=== PATIENT | male | born 2000 | race Caucasian/White ===

== ENCOUNTER 2018-04-27 04:10 | Emergency (ER) | payer OTHER ==
[~2018-04-27] VITALS: Ht 177.8 cm; Wt 73.5 kg
[2018-04-27 04:22] VITALS: BP 129/84
[2018-04-27] MEDS ORDERED: IBUPROFEN 800 MG TAB PO ONE (06:30)
== END 2018-04-27 07:41 | disposition home or self-care (01) ==
LOC: ER 04:11
DX: M48.061 Spinal stenosis, lumbar region without neurogenic claudication (principal); X50.1XXA Overexertion from prolonged static or awkward postures, initial encounter; Y93.89 Activity, other specified; Y92.89 Other specified places as the place of occurrence of the external cause; Y99.8 Other external cause status
CPT/HCPCS: 72128; 72131

== ENCOUNTER 2019-01-25 08:56 | Emergency (ER) | payer MEDICAID, OTHER ==
[~2019-01-25] VITALS: Ht 172.7 cm; Wt 81.6 kg
[2019-01-25 09:42] LABS: Basophils # (auto) 0 uL; Basophils % (auto) 0.2 % (0.0-2.0); Eosinophils # (auto) 0 uL; Eosinophils % (auto) 0.2 % (0.0-7.0); Hematocrit 50.2 % (41.0-53.0); Hemoglobin 17.1 g/dL (13.5-17.5); Lymphocytes # (auto) 1.2 uL; Lymphocytes % (auto) 11.4 % (10.0-50.0); Mean Corpuscular Hemoglobin 31.2 pg (28.0-32.0); Mean Corpuscular Hgb Conc. 34.1 g/dL (32.0-36.0); Mean Corpuscular Volume 91.5 fL (80.0-100.0); Monocytes # (auto) 0.8 uL; Monocytes % (auto) 7.3 % (0.0-12.0); Neutrophils # (auto) 8.8 uL; Neutrophils % (auto) 80.9 % (37.0-80.0); Platelet Count (auto) 221 10^3/uL (140-450); Red Blood Cells 5.48 10^6/uL (4.5-5.90); Red Cell Distribution Width 12.5 % (11.8-14.3); White Blood Cell 10.9 10^3/uL (4.4-10.8)
[2019-01-25 09:53] LABS: Albumin 4.2 g/dL (3.4-5.0); Calcium 9.3 mg/dL (8.5-10.1); Potassium 3.5 mmol/L (3.5-5.1)
[2019-01-25 09:56] LABS: BUN/Creatinine Ratio 8.5; Bilirubin, Total 0.7 mg/dL (0.2-1.0); Total Protein 8.5 g/dL (6.4-8.2)
[2019-01-25] MEDS ORDERED: SODIUM CHLORIDE 0.9% 1,000 ML IV ONE ×2 (10:00→10:07)
[2019-01-25] MEDS ORDERED: KETOROLAC TROMETH 30 MG/ML 1ML VIAL IV ONE (11:45)
[2019-01-25] MEDS ORDERED: cefTRIAXone 1GM/50ML D5W 50 ML IV ONE (12:15)
[2019-01-25 14:11] VITALS: BP 116/65
== END 2019-01-25 14:13 | disposition home or self-care (01) ==
LOC: ER 09:02
DX: R78.81 Bacteremia (principal); J32.9 Chronic sinusitis, unspecified; R11.2 Nausea with vomiting, unspecified; R10.84 Generalized abdominal pain
CPT/HCPCS: 36415; 70486; 71046; 80053; 83605; 83735; 85025; 87040; 93005; 96361; 96365; 96366; 96375; 99284; J0696; J1885; J7030

== ENCOUNTER 2022-08-03 15:57 | Inpatient (IN) | payer MEDICAID ==
[~2022-08-03] VITALS: Ht 180.3 cm; Wt 85.5 kg
[2022-08-03] MEDS ORDERED: SODIUM CHLORIDE 0.9% 1,000 ML IV ONE (16:30)
[2022-08-03] MEDS ORDERED: ONDANSETRON HCL 4 MG/2 ML VIAL IV ONE (16:30)
[2022-08-03] MEDS ORDERED: HYDROmorphone HCL 2 MG/ML VL/or syr IV ONE ×3 (16:30→20:15)
[2022-08-03] MEDS ORDERED: TEMAZEPAM 15 MG CAP PO PRN (21:00)
[2022-08-03] MEDS ORDERED: HYDROcodone-ACET 5/325MG TAB PO PRN (21:00)
[2022-08-03] MEDS: SODIUM CHLORIDE 0.9% 1,000 ML IV SCH (21:39)
[2022-08-03] MEDS: MORPHINE SULFATE INJ 2 MG/ml SYRG IV PRN (21:55)
[2022-08-03 22:00] LABS: Basophils # (auto) 0 10 ^3/uL (0-0.2); Basophils % (auto) 0.2 % (0.0-2.0); Eosinophils # (auto) 0 10 ^3/uL (0-0.8); Eosinophils % (auto) 0.3 % (0.0-7.0); Hematocrit 39.9 % (41.0-53.0); Hemoglobin 13.2 g/dL (13.5-17.5); Lymphocytes # (auto) 2.4 10 ^3/uL (0.4-5.4); Lymphocytes % (auto) 13.7 % (10.0-50.0); Mean Corpuscular Hemoglobin 31.1 pg (28.0-32.0); Mean Corpuscular Hgb Conc. 33.1 g/dL (32.0-36.0); Mean Corpuscular Volume 93.8 fL (80.0-100.0); Monocytes # (auto) 1.5 10 ^3/uL (0-1.3); Monocytes % (auto) 8.4 % (0.0-12.0); Neutrophils # (auto) 13.6 10 ^3/uL (1.6-8.6); Neutrophils % (auto) 77.4 % (37.0-80.0); Red Blood Cells 4.25 10^6/uL (4.5-5.90); Red Cell Distribution Width 12.7 % (11.8-14.3); White Blood Cell 17.6 10^3/uL (4.4-10.8)
[2022-08-03 22:14] LABS: INR 1.04 (0.9-1.15); Partial Thromboplastin Time 24.5 sec (24.6-33.4)
[2022-08-03 23:18] LABS: Potassium 3.8 mmol/L (3.5-5.1)
[2022-08-03 23:19] LABS: Albumin 3.3 g/dL (3.4-5.0); BUN/Creatinine Ratio 8.8; Bilirubin, Total 0.5 mg/dL (0.2-1.0); Calcium 8.3 mg/dL (8.5-10.1); Total Protein 6.2 g/dL (6.4-8.2)
[2022-08-04] MEDS: MORPHINE SULFATE INJ 2 MG/ml SYRG IV PRN ×2 (01:59→11:10)
[2022-08-04] MEDS ORDERED: KETOROLAC TROMETH 30 MG/ML 1ML VIAL IV ONE (03:15)
[2022-08-04] MEDS: SODIUM CHLORIDE 0.9% 1,000 ML IV SCH ×2 (11:06→21:35)
[2022-08-04] MEDS: ONDANSETRON HCL 4 MG/2 ML VIAL IV PRN (11:07)
[2022-08-04] MEDS ORDERED: BUPIVACAINE W/ EPINEPH 0.5% INJ 50ML MDV IJ ONE (11:15)
[2022-08-04] MEDS ORDERED: ceFAZolin 1GM/50ML 100 ML IV ONE (12:02)
[2022-08-04] MEDS ORDERED: fentaNYL CITRATE 100 MCG/2 ML VL ONE (12:16)
[2022-08-04] MEDS ORDERED: MEPERIDINE HCL (50 MG/ML) 1 ML VIAL ONE (12:16)
[2022-08-04] MEDS ORDERED: MIDAZOLAM HCL 2MG/2ML 2ml VIAL (1mg/ml) ONE (12:16)
[2022-08-04] MEDS ORDERED: MIDAZOLAM HCL 2MG/2ML 2ml VIAL (1mg/ml) IV PRN (12:45)
[2022-08-04] MEDS ORDERED: ONDANSETRON HCL 4 MG/2 ML VIAL IV PRN (12:45)
[2022-08-04] MEDS ORDERED: LABETALOL HCL 5 MG/ML 4ML SYRINGE IV PRN (12:45)
[2022-08-04] MEDS ORDERED: HYDROmorphone HCL 2 MG/ML VL/or syr IV PRN (12:45)
[2022-08-04] MEDS ORDERED: ePHEDrine SULFATE 50 MG/ML AMP IV PRN (12:45)
[2022-08-04] MEDS ORDERED: MORPHINE SULFATE 4 MG/ML SYR/VIAL IV PRN (12:45)
[2022-08-04] MEDS ORDERED: DexAMETHasone SOD PHOS 10MG/1ML VIAL INJ ONE (12:59)
[2022-08-04] MEDS ORDERED: PROPOFOL 10 MG/ML 20 ML IV ONE (12:59)
[2022-08-04] MEDS ORDERED: ONDANSETRON HCL 4 MG/2 ML VIAL ONE (12:59)
[2022-08-04 17:24] VITALS: BP 138/72
[2022-08-04] MEDS: HYDROmorphone HCL 2 MG/ML VL/or syr IV PRN (18:10)
[2022-08-04 18:16] VITALS: BP 126/69
[2022-08-04] MEDS: ceFAZolin 2 GM in D5W 5% 100 ML IV SCH (21:35)
[2022-08-04 21:49] VITALS: BP 115/61
[2022-08-05] MEDS: HYDROcodone-ACET 10/325MG TAB PO PRN ×3 (01:18→18:56)
[2022-08-05] MEDS: HYDROmorphone HCL 2 MG/ML VL/or syr IV PRN ×5 (03:13→20:20)
[2022-08-05] MEDS: ceFAZolin 2 GM in D5W 5% 100 ML IV SCH ×2 (04:47→12:34)
[2022-08-05 05:10] VITALS: BP 118/52
[2022-08-05 08:30] VITALS: BP 110/70
[2022-08-05] MEDS: SODIUM CHLORIDE 0.9% 1,000 ML IV SCH (12:35)
[2022-08-05 14:13] VITALS: BP 124/64
[2022-08-05 16:00] VITALS: BP 138/76
[2022-08-05] MEDS: ENOXAPARIN SOD 40 MG/0.4 ML SYRINGE SC SCH (17:20)
[2022-08-05 21:40] VITALS: BP 124/41
[2022-08-06] MEDS: HYDROmorphone HCL 2 MG/ML VL/or syr IV PRN ×7 (00:20→21:29)
[2022-08-06] MEDS: SODIUM CHLORIDE 0.9% 1,000 ML IV SCH (02:20)
[2022-08-06] MEDS: HYDROcodone-ACET 10/325MG TAB PO PRN ×4 (02:46→22:59)
[2022-08-06 04:48] VITALS: BP 130/78
[2022-08-06] MEDS: ACETAMINOPHEN 325 MG TAB PO PRN (05:54)
[2022-08-06] MEDS: ENOXAPARIN SOD 40 MG/0.4 ML SYRINGE SC SCH (08:25)
[2022-08-06 09:00] VITALS: BP 129/89
[2022-08-06 13:25] VITALS: BP 134/74
[2022-08-06 16:55] VITALS: BP 153/83
[2022-08-06 22:00] VITALS: BP 142/89
[2022-08-06] MEDS: ONDANSETRON HCL 4 MG/2 ML VIAL IV PRN (23:51)
[2022-08-07 00:30] VITALS: BP 139/78
[2022-08-07] MEDS: ACETAMINOPHEN 325 MG TAB PO PRN ×3 (00:45→15:58)
[2022-08-07] MEDS: HYDROmorphone HCL 2 MG/ML VL/or syr IV PRN ×6 (00:47→21:59)
[2022-08-07 04:53] VITALS: BP 116/52
[2022-08-07 05:04] LABS: Basophils # (auto) 0 10 ^3/uL (0-0.2); Basophils % (auto) 0.3 % (0.0-2.0); Eosinophils # (auto) 0 10 ^3/uL (0-0.8); Eosinophils % (auto) 0.3 % (0.0-7.0); Hematocrit 37.9 % (41.0-53.0); Hemoglobin 12.9 g/dL (13.5-17.5); Lymphocytes # (auto) 1.3 10 ^3/uL (0.4-5.4); Lymphocytes % (auto) 9.2 % (10.0-50.0); Mean Corpuscular Hemoglobin 31.4 pg (28.0-32.0); Mean Corpuscular Hgb Conc. 34.1 g/dL (32.0-36.0); Monocytes # (auto) 1.3 10 ^3/uL (0-1.3); Monocytes % (auto) 9.6 % (0.0-12.0); Neutrophils # (auto) 11.3 10 ^3/uL (1.6-8.6); Neutrophils % (auto) 80.6 % (37.0-80.0); Red Blood Cells 4.12 10^6/uL (4.5-5.90); Red Cell Distribution Width 12.3 % (11.8-14.3); White Blood Cell 14.1 10^3/uL (4.4-10.8)
[2022-08-07 05:22] LABS: BUN/Creatinine Ratio 9.2; Calcium 8.3 mg/dL (8.5-10.1); Magnesium 1.7 mg/dL (1.6-2.6); Potassium 3.7 mmol/L (3.5-5.1)
[2022-08-07] MEDS: ONDANSETRON HCL 4 MG/2 ML VIAL IV PRN ×2 (08:27→15:57)
[2022-08-07] MEDS: ENOXAPARIN SOD 40 MG/0.4 ML SYRINGE SC SCH (08:27)
[2022-08-07 09:00] VITALS: BP 144/77
[2022-08-07] MEDS ORDERED: ASPI-325 PO (11:37)
[2022-08-07] MEDS ORDERED: HYDR-4798 PO (11:37)
[2022-08-07] MEDS ORDERED: DOCU-94 PO (11:37)
[2022-08-07] MEDS ORDERED: ONDA-144 PO (11:37)
[2022-08-07 12:12] LABS: Urine Bacteria None Seen /hpf (None Seen); Urine WBC None Seen /hpf (0 - 3)
[2022-08-07 13:00] VITALS: BP 144/68
[2022-08-07] MEDS: cefTRIAXone 1GM/50ML D5W 50 ML IV SCH (13:23)
[2022-08-07] MEDS: HYDROcodone-ACET 10/325MG TAB PO PRN (14:14)
[2022-08-07 17:00] VITALS: BP 153/89
[2022-08-07 21:00] VITALS: BP 127/74
[2022-08-08] MEDS: ACETAMINOPHEN 325 MG TAB PO PRN ×5 (00:51→22:09)
[2022-08-08] MEDS: HYDROmorphone HCL 2 MG/ML VL/or syr IV PRN ×6 (00:51→23:54)
[2022-08-08] MEDS: ONDANSETRON HCL 4 MG/2 ML VIAL IV PRN ×4 (02:53→23:53)
[2022-08-08] MEDS ORDERED: SODIUM CHLORIDE 0.9% 1,000 ML IV SCH (03:30)
[2022-08-08] MEDS: HYDROcodone-ACET 10/325MG TAB PO PRN ×4 (03:36→22:34)
[2022-08-08 05:00] VITALS: BP_SYST 132; BP_SYST 139; BP_DIAS 72; BP_DIAS 81
[2022-08-08 09:00] VITALS: BP 116/64
[2022-08-08] MEDS: ENOXAPARIN SOD 40 MG/0.4 ML SYRINGE SC SCH (10:46)
[2022-08-08] MEDS: cefTRIAXone 1GM/50ML D5W 50 ML IV SCH (10:46)
[2022-08-08 12:31] LABS: Basophils # (auto) 0 10 ^3/uL (0-0.2); Basophils % (auto) 0.5 % (0.0-2.0); Eosinophils # (auto) 0.1 10 ^3/uL (0-0.8); Eosinophils % (auto) 1.2 % (0.0-7.0); Hematocrit 38.4 % (41.0-53.0); Hemoglobin 12.7 g/dL (13.5-17.5); Lymphocytes # (auto) 0.9 10 ^3/uL (0.4-5.4); Lymphocytes % (auto) 14.3 % (10.0-50.0); Mean Corpuscular Hemoglobin 30.3 pg (28.0-32.0); Mean Corpuscular Volume 91.6 fL (80.0-100.0); Monocytes # (auto) 0.7 10 ^3/uL (0-1.3); Monocytes % (auto) 9.9 % (0.0-12.0); Neutrophils # (auto) 4.9 10 ^3/uL (1.6-8.6); Neutrophils % (auto) 74.1 % (37.0-80.0); Red Cell Distribution Width 12.4 % (11.8-14.3); White Blood Cell 6.6 10^3/uL (4.4-10.8)
[2022-08-08 13:00] VITALS: BP 135/84
[2022-08-08 17:00] VITALS: BP 141/77
[2022-08-08 22:55] VITALS: BP 107/67
[2022-08-09] MEDS: HYDROcodone-ACET 10/325MG TAB PO PRN ×3 (02:33→23:50)
[2022-08-09 05:00] VITALS: BP 125/58
[2022-08-09] MEDS: ONDANSETRON HCL 4 MG/2 ML VIAL IV PRN ×3 (05:00→13:09)
[2022-08-09] MEDS: HYDROmorphone HCL 2 MG/ML VL/or syr IV PRN ×5 (05:00→21:46)
[2022-08-09] MEDS: SODIUM CHLORIDE 0.9% 1,000 ML IV SCH ×2 (05:00→14:52)
[2022-08-09 05:04] LABS: Basophils # (auto) 0.1 10 ^3/uL (0-0.2); Basophils % (auto) 0.7 % (0.0-2.0); Eosinophils # (auto) 0.1 10 ^3/uL (0-0.8); Eosinophils % (auto) 1.4 % (0.0-7.0); Hemoglobin 12.2 g/dL (13.5-17.5); Lymphocytes # (auto) 1.5 10 ^3/uL (0.4-5.4); Lymphocytes % (auto) 17.4 % (10.0-50.0); Mean Corpuscular Hemoglobin 30.5 pg (28.0-32.0); Mean Corpuscular Hgb Conc. 33.9 g/dL (32.0-36.0); Mean Corpuscular Volume 90.1 fL (80.0-100.0); Monocytes # (auto) 1.4 10 ^3/uL (0-1.3); Neutrophils # (auto) 5.3 10 ^3/uL (1.6-8.6); Neutrophils % (auto) 63.5 % (37.0-80.0); Red Cell Distribution Width 12.3 % (11.8-14.3); White Blood Cell 8.4 10^3/uL (4.4-10.8)
[2022-08-09 05:05] LABS: BUN/Creatinine Ratio 12.7; Calcium 8.2 mg/dL (8.5-10.1); Magnesium 2.1 mg/dL (1.6-2.6); Potassium 3.7 mmol/L (3.5-5.1)
[2022-08-09] MEDS: ACETAMINOPHEN 325 MG TAB PO PRN (06:07)
[2022-08-09] MEDS: cefTRIAXone 1GM/50ML D5W 50 ML IV SCH (09:17)
[2022-08-09] MEDS: ENOXAPARIN SOD 40 MG/0.4 ML SYRINGE SC SCH (09:18)
[2022-08-09 09:33] VITALS: BP 122/64
[2022-08-09 12:58] VITALS: BP 123/67
[2022-08-09 16:27] VITALS: BP 128/72
[2022-08-09 22:00] VITALS: BP 114/65
[2022-08-10] MEDS: SODIUM CHLORIDE 0.9% 1,000 ML IV SCH ×2 (01:00→07:07)
[2022-08-10] MEDS: HYDROmorphone HCL 2 MG/ML VL/or syr IV PRN ×3 (02:53→16:38)
[2022-08-10 05:21] VITALS: BP 115/62
[2022-08-10] MEDS: HYDROcodone-ACET 10/325MG TAB PO PRN ×2 (06:23→20:52)
[2022-08-10 06:31] LABS: Basophils # (auto) 0.1 10 ^3/uL (0-0.2); Basophils % (auto) 0.7 % (0.0-2.0); Eosinophils # (auto) 0.2 10 ^3/uL (0-0.8); Eosinophils % (auto) 2.2 % (0.0-7.0); Hematocrit 35.6 % (41.0-53.0); Hemoglobin 12.1 g/dL (13.5-17.5); Lymphocytes # (auto) 2.4 10 ^3/uL (0.4-5.4); Lymphocytes % (auto) 27.8 % (10.0-50.0); Mean Corpuscular Volume 91.2 fL (80.0-100.0); Monocytes # (auto) 1.3 10 ^3/uL (0-1.3); Monocytes % (auto) 15.5 % (0.0-12.0); Neutrophils # (auto) 4.6 10 ^3/uL (1.6-8.6); Neutrophils % (auto) 53.8 % (37.0-80.0); Nucleated Red Blood Cells % 0.1 %; Red Cell Distribution Width 12.8 % (11.8-14.3); White Blood Cell 8.5 10^3/uL (4.4-10.8)
[2022-08-10 06:34] LABS: BUN/Creatinine Ratio 11.6; Calcium 8.4 mg/dL (8.5-10.1); Magnesium 2.3 mg/dL (1.6-2.6); Potassium 3.6 mmol/L (3.5-5.1)
[2022-08-10 08:00] VITALS: BP 127/69
[2022-08-10 09:00] VITALS: BP 127/69
[2022-08-10] MEDS ORDERED: cefTRIAXone 1GM/50ML D5W 50 ML IV SCH (09:00)
[2022-08-10] MEDS: ENOXAPARIN SOD 40 MG/0.4 ML SYRINGE SC SCH (09:59)
[2022-08-10] MEDS ORDERED: CEFTRIAXONE SODIUM 2 GM in D5W 5% 50 ML IV SCH (10:00)
[2022-08-10] MEDS ORDERED: CEFTRIAXONE SODIUM 1 GM in D5W 5% 50 ML IV SCH (10:00)
[2022-08-10 13:00] VITALS: BP 118/65
[2022-08-10 15:21] LABS: Urine Amorphous Crystal MOD /hpf (None Seen); Urine Bacteria FEW /hpf (None Seen); Urine Blood Negative /uL (Negative); Urine Budding Yeast MANY /hpf (None Seen); Urine Specific Gravity 1.012 (1.001-1.035); Urine WBC 5 /hpf (0 - 3)
[2022-08-10 17:00] VITALS: BP 124/47
[2022-08-10 22:00] VITALS: BP 133/76
[2022-08-10] MEDS ORDERED: POLYETHYLENE GLYCOL 17 GM PWDR PO PRN (22:15)
[2022-08-10] MEDS: PIPERACILLIN-TAZOB 3.375GM 100 ML IV SCH (23:03)
[2022-08-10] MEDS: DOCUSATE SOD 100 MG CAP PO SCH (23:04)
[2022-08-11] MEDS: SODIUM CHLORIDE 0.9% 1,000 ML IV SCH ×3 (01:06→16:50)
[2022-08-11] MEDS: HYDROcodone-ACET 10/325MG TAB PO PRN ×2 (03:24→09:10)
[2022-08-11 05:00] VITALS: BP 100/40
[2022-08-11] MEDS: PIPERACILLIN-TAZOB 3.375GM 100 ML IV SCH (05:48)
[2022-08-11 08:00] VITALS: BP 127/64
[2022-08-11] MEDS: DOCUSATE SOD 100 MG CAP PO SCH (09:10)
[2022-08-11] MEDS: ENOXAPARIN SOD 40 MG/0.4 ML SYRINGE SC SCH (09:10)
[2022-08-11 13:00] VITALS: BP 125/79
[2022-08-11] MEDS ORDERED: levoFLOXacin 750MG 150 ML IV SCH (13:30)
[2022-08-11 16:02] VITALS: BP 125/79
== END 2022-08-11 17:14 | disposition home health service (06) | DRG 313 ==
LOC: EDBD 15:57 → ER 15:57 → OVERFLOW 20:48 → WEST WING 08-04 17:36
PROVIDERS: ADMIT Nurse Practitioner; ATTEND Internal Medicine
PROC: 0QSG04Z Reposition Right Tibia with Internal Fixation Device, Open Approach (ICD-10-PCS; 2022-08-04)
PROC: 0QSJ04Z Reposition Right Fibula with Internal Fixation Device, Open Approach (ICD-10-PCS; principal; 2022-08-04 12:21)
PROC: 05HA33Z Insertion of Infusion Device into Left Brachial Vein, Percutaneous Approach (ICD-10-PCS; 2022-08-10)
PROC: B54NZZA Ultrasonography of Left Upper Extremity Veins, Guidance (ICD-10-PCS; 2022-08-10)
DX: S82.451A Displaced comminuted fracture of shaft of right fibula, initial encounter for closed fracture (principal); E88.09 Other disorders of plasma-protein metabolism, not elsewhere classified; S82.231A Displaced oblique fracture of shaft of right tibia, initial encounter for closed fracture; D72.829 Elevated white blood cell count, unspecified; Z20.822 Contact with and (suspected) exposure to COVID-19; Z66 Do not resuscitate; Z82.0 Family history of epilepsy and other diseases of the nervous system; Z82.49 Family history of ischemic heart disease and other diseases of the circulatory system; Z83.3 Family history of diabetes mellitus; Y93.89 Activity, other specified; Y92.89 Other specified places as the place of occurrence of the external cause; Y99.8 Other external cause status; V86.56XA Driver of dirt bike or motor/cross bike injured in nontraffic accident, initial encounter
CPT/HCPCS: 36415; 70450; 71045; 71250; 72125; 73590; 73700; 74176; 80048; 80053; 81001; 81015; 83735; 85025; 85049; 85610; 85730; 86850; 86900; 86901; 87040; 87077; 87186; 93005; 96361; 96374; 96375; 96376; 97110; 97116; 97163; 97530; G0378; J0690; J0696; J1100; J1885; J1956; J2250; J2405; J2543; J2704; J7060

== ENCOUNTER 2022-08-17 15:08 | Emergency (ER) | payer MEDICAID ==
[~2022-08-17] VITALS: Ht 175.3 cm; Wt 72.7 kg
[~2022-08-17 15:08] MED LIST: ASPI-325 PO; DOCU-94 PO; HYDR-4798 PO; ONDA-144 PO
[2022-08-17 15:35] VITALS: BP 123/78
== END 2022-08-17 17:31 | disposition left against medical advice (07) ==
LOC: ER 15:08
DX: R22.31 Localized swelling, mass and lump, right upper limb (principal); Z53.21 Procedure and treatment not carried out due to patient leaving prior to being seen by health care provider

== ENCOUNTER 2022-08-26 05:21 | Inpatient (IN) | payer MEDICAID ==
[~2022-08-26] VITALS: Ht 182.9 cm; Wt 75.1 kg
[2022-08-26 06:56] LABS: Basophils # (auto) 0.1 10 ^3/uL (0-0.2); Eosinophils # (auto) 0.1 10 ^3/uL (0-0.8); Hematocrit 41.6 % (41.0-53.0); Monocytes # (auto) 1.4 10 ^3/uL (0-1.3); Red Cell Distribution Width 12.9 % (11.8-14.3)
[2022-08-26 06:58] LABS: Basophils % (auto) 0.7 % (0.0-2.0); Eosinophils % (auto) 0.6 % (0.0-7.0); Hemoglobin 13.3 g/dL (13.5-17.5); Lymphocytes % (auto) 14.4 % (10.0-50.0); Mean Corpuscular Hemoglobin 28.6 pg (28.0-32.0); Mean Corpuscular Volume 89.6 fL (80.0-100.0); Monocytes % (auto) 10.6 % (0.0-12.0); Neutrophils # (auto) 10.1 10 ^3/uL (1.6-8.6); Neutrophils % (auto) 73.7 % (37.0-80.0); Nucleated Red Blood Cells % 0.1 %; Red Blood Cells 4.64 10^6/uL (4.5-5.90); White Blood Cell 13.7 10^3/uL (4.4-10.8)
[2022-08-26 07:06] LABS: Albumin 3.4 g/dL (3.4-5.0); BUN/Creatinine Ratio 7.1; Calcium 9.4 mg/dL (8.5-10.1); Potassium 3.9 mmol/L (3.5-5.1)
[2022-08-26 07:09] LABS: Bilirubin, Total 0.5 mg/dL (0.2-1.0); Total Protein 7.8 g/dL (6.4-8.2)
[2022-08-26 08:31] LABS: Urine Bacteria NONE SEEN /hpf (None Seen); Urine Blood Negative /uL (Negative); Urine Mucus FEW (None Seen); Urine WBC 1 /hpf (0 - 3)
[2022-08-26] MEDS ORDERED: METOCLOPRAMIDE HCL 5MG/ml INJ 2ml VIAL IV ONE (12:15)
[2022-08-26] MEDS ORDERED: KETOROLAC TROMETH 30 MG/ML 1ML VIAL IV ONE (12:15)
[2022-08-26] MEDS ORDERED: IOHEXOL 350 MG/ML 100ML IJ ONE (12:27)
[2022-08-26 13:54] LABS: Amphetamine Screen, Urine NEGATIVE (NEGATIVE); Barbiturate Scree,Urine NEGATIVE (NEGATIVE); Benzodiazephine Screen, Urine NEGATIVE (NEGATIVE); Cannabinoid Screen, Urine NEGATIVE (NEGATIVE); Cocaine Screen, Urine NEGATIVE (NEGATIVE); Opiate Scree,Urine NEGATIVE (NEGATIVE); Phencyclidine Screen, Urine NEGATIVE (NEGATIVE)
[2022-08-26] MEDS: DOCUSATE SOD 100 MG CAP PO SCH ×2 (16:30→22:23)
[2022-08-26] MEDS ORDERED: ACETAMINOPHEN 325 MG TAB PO PRN (16:30)
[2022-08-26] MEDS: SODIUM CHLORIDE 0.9% 1,000 ML IV SCH (16:58)
[2022-08-26] MEDS: ONDANSETRON HCL 4 MG/2 ML VIAL IV PRN (16:58)
[2022-08-26] MEDS: MORPHINE SULFATE INJ 2 MG/ml SYRG IV PRN ×2 (16:59→21:22)
[2022-08-26] MEDS: levoFLOXacin 750MG 150 ML IV SCH (18:01)
[2022-08-27] VITALS (10 sets, daily range): BP systolic 120–168; BP diastolic 65–96
[2022-08-27] MEDS ORDERED: ACET-1156 PO (01:48)
[2022-08-27] MEDS: PANTOPRAZOLE 40 MG/10 ML VIAL INJ IV SCH ×2 (02:02→09:42)
[2022-08-27] MEDS: MORPHINE SULFATE INJ 2 MG/ml SYRG IV PRN ×4 (05:58→20:57)
[2022-08-27] MEDS: SODIUM CHLORIDE 0.9% 1,000 ML IV SCH ×2 (06:03→19:10)
[2022-08-27] MEDS: levoFLOXacin 750MG 150 ML IV SCH (09:42)
[2022-08-27] MEDS: DOCUSATE SOD 100 MG CAP PO SCH ×2 (09:43→22:19)
[2022-08-27] MEDS: HYDROcodone-ACET 5/325MG TAB PO PRN (10:57)
[2022-08-27] MEDS ORDERED: CARISOPRODOL 350 MG TAB PO PRN (13:45)
[2022-08-27] MEDS: LIDOCAINE 5% TOPICAL PATCH TOP SCH (18:59)
[2022-08-27] MEDS ORDERED: HYDROcodone-ACET 5/325MG TAB PO PRN (21:45)
[2022-08-28 00:30] VITALS: BP 135/77
[2022-08-28] MEDS ORDERED: IBUPROFEN 600 MG TAB PO ONE (02:00)
[2022-08-28] MEDS: MORPHINE SULFATE INJ 2 MG/ml SYRG IV PRN ×5 (04:28→20:22)
[2022-08-28 05:15] VITALS: BP 152/78
[2022-08-28 08:00] VITALS: BP 139/83
[2022-08-28 08:30] VITALS: BP 139/83
[2022-08-28] MEDS: SODIUM CHLORIDE 0.9% 1,000 ML IV SCH ×2 (09:31→22:48)
[2022-08-28] MEDS: PANTOPRAZOLE 40 MG/10 ML VIAL INJ IV SCH (10:49)
[2022-08-28] MEDS: levoFLOXacin 750MG 150 ML IV SCH (10:49)
[2022-08-28] MEDS: DOCUSATE SOD 100 MG CAP PO SCH ×2 (10:49→22:48)
[2022-08-28] MEDS: HYDROcodone-ACET 5/325MG TAB PO PRN ×2 (10:50→23:12)
[2022-08-28] MEDS: ONDANSETRON HCL 4 MG/2 ML VIAL IV PRN (12:03)
[2022-08-28 13:00] VITALS: BP 133/77
[2022-08-28] MEDS: ENOXAPARIN SOD 40 MG/0.4 ML SYRINGE SC SCH (16:38)
[2022-08-28] MEDS: LIDOCAINE 5% TOPICAL PATCH TOP SCH (18:19)
[2022-08-28 19:38] LABS: Basophils # (auto) 0.1 10 ^3/uL (0-0.2); Basophils % (auto) 1.2 % (0.0-2.0); Eosinophils # (auto) 0.1 10 ^3/uL (0-0.8); Eosinophils % (auto) 0.6 % (0.0-7.0); Hematocrit 37.9 % (41.0-53.0); Hemoglobin 12.3 g/dL (13.5-17.5); Lymphocytes # (auto) 2.2 10 ^3/uL (0.4-5.4); Mean Corpuscular Hemoglobin 29.1 pg (28.0-32.0); Mean Corpuscular Hgb Conc. 32.4 g/dL (32.0-36.0); Mean Corpuscular Volume 89.8 fL (80.0-100.0); Monocytes # (auto) 1.3 10 ^3/uL (0-1.3); Monocytes % (auto) 11.2 % (0.0-12.0); Neutrophils # (auto) 7.9 10 ^3/uL (1.6-8.6); Red Blood Cells 4.22 10^6/uL (4.5-5.90); Red Cell Distribution Width 12.8 % (11.8-14.3); White Blood Cell 11.6 10^3/uL (4.4-10.8)
[2022-08-28] MEDS: AZITHROMYCIN 500MG/ 250ML 250 ML IV ONE ×2 (20:30→20:54)
[2022-08-28] MEDS: CEFEPIME 2 GM in SODIUM CHL 0.9% 50 ML IV SCH (22:00)
[2022-08-29] MEDS: MORPHINE SULFATE INJ 2 MG/ml SYRG IV PRN ×3 (00:54→09:29)
[2022-08-29 05:00] VITALS: BP 138/61
[2022-08-29] MEDS: CEFEPIME 2 GM in SODIUM CHL 0.9% 50 ML IV SCH ×3 (05:38→21:07)
[2022-08-29 06:33] LABS: Basophils # (auto) 0.1 10 ^3/uL (0-0.2); Basophils % (auto) 0.7 % (0.0-2.0); Eosinophils # (auto) 0.1 10 ^3/uL (0-0.8); Eosinophils % (auto) 0.6 % (0.0-7.0); Hematocrit 37.1 % (41.0-53.0); Hemoglobin 12.4 g/dL (13.5-17.5); Lymphocytes # (auto) 2.9 10 ^3/uL (0.4-5.4); Lymphocytes % (auto) 20.4 % (10.0-50.0); Mean Corpuscular Hemoglobin 29.9 pg (28.0-32.0); Mean Corpuscular Hgb Conc. 33.6 g/dL (32.0-36.0); Monocytes # (auto) 1.9 10 ^3/uL (0-1.3); Monocytes % (auto) 13.1 % (0.0-12.0); Neutrophils # (auto) 9.3 10 ^3/uL (1.6-8.6); Neutrophils % (auto) 65.2 % (37.0-80.0); Red Blood Cells 4.16 10^6/uL (4.5-5.90); Red Cell Distribution Width 12.4 % (11.8-14.3); White Blood Cell 14.3 10^3/uL (4.4-10.8)
[2022-08-29 06:41] LABS: BUN/Creatinine Ratio 9.9; Calcium 9.1 mg/dL (8.5-10.1)
[2022-08-29 08:00] VITALS: BP 142/73
[2022-08-29 09:00] VITALS: BP 142/73
[2022-08-29] MEDS: PANTOPRAZOLE 40 MG/10 ML VIAL INJ IV SCH ×2 (09:29→21:08)
[2022-08-29] MEDS: DOCUSATE SOD 100 MG CAP PO SCH ×2 (09:30→21:08)
[2022-08-29] MEDS: AZITHROMYCIN 500MG/ 250ML 250 ML IV SCH (09:30)
[2022-08-29] MEDS: ENOXAPARIN SOD 40 MG/0.4 ML SYRINGE SC SCH (09:30)
[2022-08-29] MEDS: ONDANSETRON HCL 4 MG/2 ML VIAL IV PRN ×2 (09:30→16:40)
[2022-08-29] MEDS ORDERED: LACTULOSE 20Gm/30ML SOLN PO PRN (10:45)
[2022-08-29] MEDS: SODIUM CHLORIDE 0.9% 1,000 ML IV SCH ×2 (11:10→23:29)
[2022-08-29] MEDS: SUCRALFATE 1 GM/10 ML ORAL SUSP PO SCH ×3 (11:30→21:08)
[2022-08-29] MEDS ORDERED: IBUPROFEN 600 MG TAB PO ONE (16:00)
[2022-08-29] MEDS: HYDROcodone-ACET 5/325MG TAB PO PRN (16:40)
[2022-08-29 17:00] VITALS: BP 117/66
[2022-08-29 20:00] VITALS: BP 110/50
[2022-08-29 22:00] VITALS: BP 110/50
[2022-08-30] MEDS: ONDANSETRON HCL 4 MG/2 ML VIAL IV PRN ×2 (00:23→10:16)
[2022-08-30] MEDS: HYDROcodone-ACET 5/325MG TAB PO PRN ×2 (00:24→10:10)
[2022-08-30 05:00] VITALS: BP_SYST 119; BP_SYST 125; BP_DIAS 56; BP_DIAS 65
[2022-08-30] MEDS: CEFEPIME 2 GM in SODIUM CHL 0.9% 50 ML IV SCH ×2 (05:56→14:00)
[2022-08-30] MEDS: SUCRALFATE 1 GM/10 ML ORAL SUSP PO SCH ×2 (06:01→11:30)
[2022-08-30 08:00] VITALS: BP 126/67
[2022-08-30 09:00] VITALS: BP 126/67
[2022-08-30] MEDS: DOCUSATE SOD 100 MG CAP PO SCH (10:09)
[2022-08-30] MEDS: AZITHROMYCIN 500MG/ 250ML 250 ML IV SCH (10:09)
[2022-08-30] MEDS: PANTOPRAZOLE 40 MG/10 ML VIAL INJ IV SCH (10:09)
[2022-08-30] MEDS: ENOXAPARIN SOD 40 MG/0.4 ML SYRINGE SC SCH (10:09)
[2022-08-30] MEDS ORDERED: AZIT500T66 PO (12:15)
[2022-08-30] MEDS ORDERED: ONDA-144 PO (12:15)
[2022-08-30 13:00] VITALS: BP 120/60
[2022-08-30 13:36] VITALS: BP 120/60
[2022-08-30] MEDS: SODIUM CHLORIDE 0.9% 1,000 ML IV SCH (13:50)
== END 2022-08-30 14:17 | disposition home or self-care (01) | DRG 139 ==
LOC: EDBD 05:21 → ER 05:21 → TELE 16:42 → TELE-EAST 21:07
PROVIDERS: ADMIT Internal Medicine; ATTEND Internal Medicine
DX: J18.9 Pneumonia, unspecified organism (principal); F11.20 Opioid dependence, uncomplicated; R07.2 Precordial pain; F17.200 Nicotine dependence, unspecified, uncomplicated; J98.11 Atelectasis; N18.9 Chronic kidney disease, unspecified; J45.909 Unspecified asthma, uncomplicated; Z20.822 Contact with and (suspected) exposure to COVID-19; Z82.0 Family history of epilepsy and other diseases of the nervous system; Z82.49 Family history of ischemic heart disease and other diseases of the circulatory system; Z83.3 Family history of diabetes mellitus; Z87.442 Personal history of urinary calculi
CPT/HCPCS: 36415; 71046; 71275; 72141; 72146; 72148; 74176; 80048; 80053; 80307; 81001; 82150; 83605; 83690; 83735; 85025; 85379; 87040; 87081; 93970; 96365; 96375; C9113; G0378; J1885; J1956; J2405